=== PATIENT | female | born 1965 | race African-American/Black ===

== ENCOUNTER 2025-03-14 06:51 | Day surgery (SDC) | payer MEDICAID ==
[2025-03-13 12:34] VITALS: BMI 58.8
[2025-03-14] MEDS ORDERED: Ketorolac Tromethamine 30 MG (1 mL) VIAL ONE (07:59)
[2025-03-14] MEDS ORDERED: Acetaminophen 500 MG TAB ONE (08:00)
[2025-03-14] MEDS ORDERED: Norepinephrine 4 MG/4 ML VIAL ONE (08:40)
[2025-03-14] MEDS ORDERED: Famotidine/PF 20 mg/2ml Vial ONE (08:40)
[2025-03-14] MEDS ORDERED: Vasopressin 20 UNITS/ML VIAL ONE (08:41)
[2025-03-14] MEDS ORDERED: PROPOFOL 20 ML ONE ×2 (08:42→09:09)
[2025-03-14] MEDS ORDERED: Fentanyl 100 MCG/2 ML VIAL ONE ×3 (08:42→13:00)
[2025-03-14] MEDS ORDERED: Lidocaine 2% PF 5 ML VIAL ONE ×2 (08:42→09:09)
[2025-03-14] MEDS ORDERED: CEFAZOLIN 2 GM VIAL ONE (08:45)
[2025-03-14] MEDS ORDERED: Rocuronium Bromide 10 MG/ML (10ML VIAL) ONE (09:25)
[2025-03-14] MEDS ORDERED: Bupivacaine/Epinephrine 0.25% 30 ML VIAL ONE (09:32)
[2025-03-14] MEDS ORDERED: Dexamethasone 4 mg/ml Vial ONE (10:23)
[2025-03-14] MEDS ORDERED: Ondansetron PF 4 MG/2 ML Vial ONE (10:23)
[2025-03-14] MEDS ORDERED: SUGAMMADEX SODIUM 200 MG/2 ML VIAL ONE (10:24)
[2025-03-14] MEDS ORDERED: HYDROcodone/Acetaminophen 5/325 mg Tablet ONE (14:09)
== END 2025-03-14 14:45 | disposition home or self-care (01) ==
LOC: CSHSDC 06:51
PROVIDERS: ATTEND Specialist
DX: C50.812 Malignant neoplasm of overlapping sites of left female breast (principal); C77.3 Secondary and unspecified malignant neoplasm of axilla and upper limb lymph nodes; L04.2 Acute lymphadenitis of upper limb; I11.0 Hypertensive heart disease with heart failure; I50.40 Unspecified combined systolic (congestive) and diastolic (congestive) heart failure; I25.10 Atherosclerotic heart disease of native coronary artery without angina pectoris; E78.00 Pure hypercholesterolemia, unspecified; E66.01 Morbid (severe) obesity due to excess calories; R73.03 Prediabetes; Z17.0 Estrogen receptor positive status [ER+]; Z17.21 Progesterone receptor positive status; Z17.32 Human epidermal growth factor receptor 2 negative status; Z68.43 Body mass index [BMI] 50.0-59.9, adult; Z87.59 Personal history of other complications of pregnancy, childbirth and the puerperium; Z95.5 Presence of coronary angioplasty implant and graft; Z79.82 Long term (current) use of aspirin; Z79.899 Other long term (current) drug therapy
CPT/HCPCS: 88305; 88307; 88309; 88331; 88334; A6258; C1713; J1100; J1308; J1885; J2405; J2704; J3010